=== PATIENT | female | born 1985 | race Caucasian/White ===

== ENCOUNTER 2017-07-07 11:07 | Emergency (ER) | payer MEDICAID ==
[2017-07-07] MEDS: ONDANSETRON (ODT) 4 MG TAB ODT (11:41)
[2017-07-07 11:50] LABS: ADD MAN DIFF? NO
[2017-07-07 11:58] LABS: BASOPHILS % 0.5 % (0.0-2.0); EOSINOPHILS # 0.1 10^3/ul (0.0-0.5); EOSINOPHILS % 1.5 % (0.0-7.0); HEMATOCRIT 41.5 % (37.0-47.0); HEMOGLOBIN 13.8 g/dl (12.0-16.0); LYMPHOCYTES # 1.6 10^3/ul (0.8-2.9); LYMPHOCYTES % 23.9 % (15.0-51.0); MEAN CORPUSCULAR HEMOGLOBIN 28.8 pg (29.0-33.0); MEAN CORPUSCULAR HGB CONC 33.3 g/dl (32.0-37.0); MEAN CORPUSCULAR VOLUME 86.5 fl (82.0-101.0); MEAN PLATELET VOLUME 9.3 fl (7.4-10.4); MONOCYTE # 0.4 10^3/ul (0.3-0.9); MONOCYTES % 5.6 % (0.0-11.0); NEUTROPHIL # 4.5 10^3/ul (1.6-7.5); NEUTROPHILS % 68.2 % (39.0-77.0); PLATELET COUNT 310 10^3/UL (140-415); RED CELL DISTRIBUTION WIDTH 12.1 % (11.5-14.5)
[2017-07-07 11:58] LABS: WHITE BLOOD COUNT 6.6 10^3/ul (4.8-10.8)
[2017-07-07 12:13] LABS: UR BACTERIA FEW /HPF (NONE SEEN); UR RBC > 182 /HPF (0-5); UR WBC 34 /HPF (0-5)
[2017-07-07 12:14] LABS: ALANINE AMINOTRANSFERASE 32 IU/L (13-69); ALBUMIN 4.2 g/dl (3.3-4.9); ALBUMIN/GLOBULIN RATIO 1.23; ALKALINE PHOSPHATASE 80 IU/L (42-121); ANION GAP 15 (8-16); ASPARTATE AMINO TRANSFERASE 22 IU/L (15-46); BILIRUBIN,INDIRECT 0.3 mg/dl (0-1.1); BILIRUBIN,TOTAL 0.3 mg/dl (0.2-1.3); BLOOD UREA NITROGEN 11 mg/dl (7-20); CALCIUM 9.8 mg/dl (8.4-10.2); CARBON DIOXIDE 30 mmol/L (21-31); CHLORIDE 103 mmol/L (97-110); CREATININE 0.56 mg/dl (0.44-1.00); GLUCOSE 98 mg/dl (70-220); LIPASE 79 U/L (23-300); POTASSIUM 4.3 mmol/L (3.5-5.1); SODIUM 144 mmol/L (135-144); TOTAL PROTEIN 7.6 g/dl (6.1-8.1)
[2017-07-07 12:28] LABS: ADD UMIC YES; UR ASCORBIC ACID NEGATIVE (NEGATIVE); UR BILIRUBIN (Dip) NEGATIVE (NEGATIVE); UR BLOOD (Dip) 3+ mg/dL (NEGATIVE); UR CLARITY SLIGHTLY CLOUDY (CLEAR); UR COLOR YELLOW (YELLOW); UR GLUCOSE (Dip) NEGATIVE (NEGATIVE); UR KETONES (Dip) NEGATIVE (NEGATIVE); UR LEUKOCYTE ESTERASE (Dip) NEGATIVE Leu/ul (NEGATIVE); UR NITRITE (Dip) NEGATIVE (NEGATIVE); UR SPECIFIC GRAVITY (Dip) 1.015 (1.003-1.030); UR SQUAMOUS EPITHELIAL CELL FEW /HPF (FEW); UR TOTAL PROTEIN (Dip) NEGATIVE (NEGATIVE); UR UROBILINOGEN (Dip) NEGATIVE (NEGATIVE)
== END 2017-07-07 12:47 | disposition home or self-care (01) ==
LOC: FTE 11:07
DX: R42 Dizziness and giddiness (principal)
CPT/HCPCS: 80053; 81001; 81025; 83690; 85025; 99283

== ENCOUNTER 2017-11-02 06:50 | Emergency (ER) | payer SELFPAY, MEDICAID ==
[2017-11-02] MEDS: SILVER SULFADIAZINE 1% 25 GM CR TOP (07:23)
== END 2017-11-02 07:32 | disposition home or self-care (01) ==
LOC: FTE 06:50
DX: T22.211A Burn of second degree of right forearm, initial encounter (principal); X10.1XXA Contact with hot food, initial encounter; Y92.89 Other specified places as the place of occurrence of the external cause
CPT/HCPCS: 16020; 99283-25

== ENCOUNTER 2018-03-06 02:35 | Emergency (ER) | payer MEDICAID, OTHER ==
[2018-03-06 04:04] LABS: ADD MAN DIFF? NO
[2018-03-06 04:06] LABS: WHITE BLOOD COUNT 9.4 10^3/ul (4.8-10.8)
[2018-03-06 04:06] LABS: BASOPHILS % 0.4 % (0.0-2.0); EOSINOPHILS # 0.1 10^3/ul (0.0-0.5); EOSINOPHILS % 0.6 % (0.0-7.0); HEMATOCRIT 36.3 % (37.0-47.0); HEMOGLOBIN 12.3 g/dl (12.0-16.0); LYMPHOCYTES # 1.8 10^3/ul (0.8-2.9); LYMPHOCYTES % 18.8 % (15.0-51.0); MEAN CORPUSCULAR HEMOGLOBIN 29.4 pg (29.0-33.0); MEAN CORPUSCULAR HGB CONC 33.9 g/dl (32.0-37.0); MEAN CORPUSCULAR VOLUME 86.6 fl (82.0-101.0); MEAN PLATELET VOLUME 9.8 fl (7.4-10.4); MONOCYTE # 0.5 10^3/ul (0.3-0.9); MONOCYTES % 4.9 % (0.0-11.0); NEUTROPHILS % 75.1 % (39.0-77.0); PLATELET COUNT 271 10^3/UL (140-415); RED BLOOD COUNT 4.19 10^6/ul (4.20-5.40); RED CELL DISTRIBUTION WIDTH 12.3 % (11.5-14.5)
[2018-03-06 04:15] LABS: ADD UMIC YES; UR ASCORBIC ACID NEGATIVE (NEGATIVE); UR BILIRUBIN (Dip) NEGATIVE (NEGATIVE); UR BLOOD (Dip) 3+ mg/dL (NEGATIVE); UR CLARITY SLIGHTLY CLOUDY (CLEAR); UR COLOR YELLOW (YELLOW); UR GLUCOSE (Dip) NEGATIVE (NEGATIVE); UR KETONES (Dip) NEGATIVE (NEGATIVE); UR LEUKOCYTE ESTERASE (Dip) NEGATIVE Leu/ul (NEGATIVE); UR MUCUS FEW /HPF (NONE SEEN); UR NITRITE (Dip) NEGATIVE (NEGATIVE); UR RBC > 182 /HPF (0-5); UR SPECIFIC GRAVITY (Dip) 1.018 (1.003-1.030); UR SQUAMOUS EPITHELIAL CELL FEW /HPF (FEW); UR TOTAL PROTEIN (Dip) NEGATIVE (NEGATIVE); UR UROBILINOGEN (Dip) NEGATIVE (NEGATIVE); UR WBC 4 /HPF (0-5)
== END 2018-03-06 05:50 | disposition home or self-care (01) ==
LOC: FTE 02:35
DX: O20.9 Hemorrhage in early pregnancy, unspecified (principal); Z3A.08 8 weeks gestation of pregnancy
CPT/HCPCS: 36415; 76801; 81001; 84702; 85025; 86900; 86901; 99284-25

== ENCOUNTER 2018-04-21 17:31 | Emergency (ER) | payer MEDICAID ==
[2018-04-21 19:42] LABS: ADD MAN DIFF? NO
[2018-04-21 19:52] LABS: WHITE BLOOD COUNT 6.6 10^3/ul (4.8-10.8)
[2018-04-21 19:52] LABS: BASOPHILS % 0.2 % (0.0-2.0); EOSINOPHILS # 0.1 10^3/ul (0.0-0.5); EOSINOPHILS % 1.4 % (0.0-7.0); HEMATOCRIT 36.6 % (37.0-47.0); LYMPHOCYTES # 1.6 10^3/ul (0.8-2.9); LYMPHOCYTES % 23.9 % (15.0-51.0); MEAN CORPUSCULAR HEMOGLOBIN 28.9 pg (29.0-33.0); MEAN CORPUSCULAR HGB CONC 32.8 g/dl (32.0-37.0); MEAN CORPUSCULAR VOLUME 88.2 fl (82.0-101.0); MEAN PLATELET VOLUME 9.7 fl (7.4-10.4); MONOCYTE # 0.5 10^3/ul (0.3-0.9); MONOCYTES % 6.8 % (0.0-11.0); NEUTROPHIL # 4.4 10^3/ul (1.6-7.5); NEUTROPHILS % 67.2 % (39.0-77.0); PLATELET COUNT 268 10^3/UL (140-415); RED BLOOD COUNT 4.15 10^6/ul (4.20-5.40); RED CELL DISTRIBUTION WIDTH 12.5 % (11.5-14.5)
[2018-04-21 20:02] LABS: ADD UMIC YES; UR ASCORBIC ACID NEGATIVE (NEGATIVE); UR BACTERIA FEW /HPF (NONE SEEN); UR BILIRUBIN (Dip) NEGATIVE (NEGATIVE); UR BLOOD (Dip) NEGATIVE (NEGATIVE); UR CLARITY SLIGHTLY CLOUDY (CLEAR); UR COLOR YELLOW (YELLOW); UR GLUCOSE (Dip) NEGATIVE (NEGATIVE); UR KETONES (Dip) NEGATIVE (NEGATIVE); UR LEUKOCYTE ESTERASE (Dip) 2+ Leu/ul (NEGATIVE); UR NITRITE (Dip) NEGATIVE (NEGATIVE); UR RBC 4 /HPF (0-5); UR SPECIFIC GRAVITY (Dip) 1.012 (1.003-1.030); UR SQUAMOUS EPITHELIAL CELL FEW /HPF (FEW); UR TOTAL PROTEIN (Dip) NEGATIVE (NEGATIVE); UR UROBILINOGEN (Dip) NEGATIVE (NEGATIVE); UR WBC 6 /HPF (0-5)
[2018-04-21 20:09] LABS: ALANINE AMINOTRANSFERASE 14 IU/L (13-69); ALBUMIN/GLOBULIN RATIO 1.17; ALKALINE PHOSPHATASE 73 IU/L (42-121); ANION GAP 9 (5-13); ASPARTATE AMINO TRANSFERASE 18 IU/L (15-46); BLOOD UREA NITROGEN 8 mg/dl (7-20); CALCIUM 9.5 mg/dl (8.4-10.2); CARBON DIOXIDE 26 mmol/L (21-31); CHLORIDE 103 mmol/L (97-110); CREATININE 0.46 mg/dl (0.44-1.00); Estimated GFR > 60 mL/min (>60); GLUCOSE 97 mg/dl (70-220); LIPASE 81 U/L (23-300); SODIUM 138 mmol/L (135-144); TOTAL PROTEIN 7.4 g/dl (6.1-8.1)
== END 2018-04-21 21:24 | disposition home or self-care (01) ==
LOC: FTE 17:31
DX: O26.892 Other specified pregnancy related conditions, second trimester (principal); R10.13 Epigastric pain; O23.42 Unspecified infection of urinary tract in pregnancy, second trimester; Z3A.16 16 weeks gestation of pregnancy
CPT/HCPCS: 36415; 76705; 80053; 81001; 83690; 85025; 99284-25

== ENCOUNTER 2018-05-10 19:48 | Emergency (ER) | payer MEDICAID ==
[2018-05-10 22:31] LABS: ADD UMIC YES; UR ASCORBIC ACID NEGATIVE (NEGATIVE); UR BILIRUBIN (Dip) NEGATIVE (NEGATIVE); UR BLOOD (Dip) NEGATIVE (NEGATIVE); UR CLARITY CLOUDY (CLEAR); UR COLOR YELLOW (YELLOW); UR GLUCOSE (Dip) 2+ mg/dL (NEGATIVE); UR KETONES (Dip) TRACE mg/dL (NEGATIVE); UR LEUKOCYTE ESTERASE (Dip) 2+ Leu/ul (NEGATIVE); UR MUCUS FEW /HPF (NONE SEEN); UR NITRITE (Dip) NEGATIVE (NEGATIVE); UR RBC 1 /HPF (0-5); UR SQUAMOUS EPITHELIAL CELL MANY /HPF (FEW); UR TOTAL PROTEIN (Dip) NEGATIVE (NEGATIVE); UR UROBILINOGEN (Dip) 1+ mg/dL (NEGATIVE); UR WBC 4 /HPF (0-5)
[2018-05-10] MEDS: ACETAMINOPHEN 500 MG TAB PO (23:30)
== END 2018-05-10 23:38 | disposition home or self-care (01) ==
LOC: FTE 23:38
DX: O26.892 Other specified pregnancy related conditions, second trimester (principal); O23.42 Unspecified infection of urinary tract in pregnancy, second trimester; Z3A.19 19 weeks gestation of pregnancy
CPT/HCPCS: 76805; 76817; 81001; 82962; 87086; 99284-25

== ENCOUNTER 2018-05-24 09:40 | Outpatient (CLI) | payer MEDICAID ==
[2018-05-24 11:05] LABS: RUPTURE FETAL MEMBRANES NEGATIVE (NEGATIVE)
[2018-05-24 11:25] LABS: ADD UMIC YES; UR ASCORBIC ACID NEGATIVE (NEGATIVE); UR BILIRUBIN (Dip) NEGATIVE (NEGATIVE); UR BLOOD (Dip) 1+ mg/dL (NEGATIVE); UR CLARITY CLEAR (CLEAR); UR COLOR STRAW (YELLOW); UR GLUCOSE (Dip) NEGATIVE (NEGATIVE); UR KETONES (Dip) NEGATIVE (NEGATIVE); UR LEUKOCYTE ESTERASE (Dip) NEGATIVE Leu/ul (NEGATIVE); UR NITRITE (Dip) NEGATIVE (NEGATIVE); UR RBC 0 /HPF (0-5); UR SQUAMOUS EPITHELIAL CELL FEW /HPF (FEW); UR TOTAL PROTEIN (Dip) NEGATIVE (NEGATIVE); UR UROBILINOGEN (Dip) NEGATIVE (NEGATIVE); UR WBC 0 /HPF (0-5)
== END 2018-05-24 12:30 | disposition home or self-care (01) ==
LOC: OBT 09:40 → L-D 09:41 → OBT 12:30
DX: O46.8X2 Other antepartum hemorrhage, second trimester (principal); Z3A.21 21 weeks gestation of pregnancy
CPT/HCPCS: 76815; 76817; 81001; 84112; 87086

== ENCOUNTER 2018-07-02 10:34 | Outpatient (CLI) | payer MEDICAID ==
[2018-07-02 11:19] LABS: ADD MAN DIFF? NO
[2018-07-02 11:20] LABS: WHITE BLOOD COUNT 7.9 10^3/ul (4.8-10.8)
[2018-07-02 11:20] LABS: BASOPHILS % 0.3 % (0.0-2.0); EOSINOPHILS # 0.1 10^3/ul (0.0-0.5); EOSINOPHILS % 1.1 % (0.0-7.0); HEMATOCRIT 33.1 % (37.0-47.0); HEMOGLOBIN 10.9 g/dl (12.0-16.0); LYMPHOCYTES # 1.5 10^3/ul (0.8-2.9); LYMPHOCYTES % 18.7 % (15.0-51.0); MEAN CORPUSCULAR HGB CONC 32.9 g/dl (32.0-37.0); MEAN PLATELET VOLUME 9.5 fl (7.4-10.4); MONOCYTE # 0.5 10^3/ul (0.3-0.9); NEUTROPHIL # 5.8 10^3/ul (1.6-7.5); NEUTROPHILS % 73.1 % (39.0-77.0); PLATELET COUNT 252 10^3/UL (140-415); RED BLOOD COUNT 3.76 10^6/ul (4.20-5.40); RED CELL DISTRIBUTION WIDTH 12.1 % (11.5-14.5)
[2018-07-02 11:52] LABS: ADD UMIC YES; UR ASCORBIC ACID NEGATIVE (NEGATIVE); UR BILIRUBIN (Dip) NEGATIVE (NEGATIVE); UR BLOOD (Dip) NEGATIVE (NEGATIVE); UR CLARITY CLEAR (CLEAR); UR COLOR YELLOW (YELLOW); UR GLUCOSE (Dip) 2+ mg/dL (NEGATIVE); UR KETONES (Dip) NEGATIVE (NEGATIVE); UR LEUKOCYTE ESTERASE (Dip) 2+ Leu/ul (NEGATIVE); UR NITRITE (Dip) NEGATIVE (NEGATIVE); UR RBC 1 /HPF (0-5); UR SPECIFIC GRAVITY (Dip) 1.014 (1.003-1.030); UR SQUAMOUS EPITHELIAL CELL FEW /HPF (FEW); UR TOTAL PROTEIN (Dip) NEGATIVE (NEGATIVE); UR UROBILINOGEN (Dip) NEGATIVE (NEGATIVE); UR WBC 2 /HPF (0-5)
== END 2018-07-02 12:57 | disposition home or self-care (01) ==
LOC: OBT 10:34 → L-D 10:34 → OBT 12:57
DX: O26.892 Other specified pregnancy related conditions, second trimester (principal); Z3A.25 25 weeks gestation of pregnancy; R10.2 Pelvic and perineal pain
CPT/HCPCS: 76817; 81001; 85025; 87086

== ENCOUNTER 2018-07-09 21:27 | Outpatient (CLI) | payer MEDICAID | END 2018-07-10 00:08 | disposition home or self-care (01) | LOC: OBT 21:27 → L-D 21:29 | DX: O9A.212 Injury, poisoning and certain other consequences of external causes complicating pregnancy, second trimester (principal); O26.892 Other specified pregnancy related conditions, second trimester; R51 Headache; Z3A.26 26 weeks gestation of pregnancy | CPT/HCPCS: 76815; 76817; 76818; 82962 ==

== ENCOUNTER 2018-07-10 00:19 | Emergency (ER) | payer SELFPAY, MEDICAID | END 2018-07-10 01:45 | disposition left against medical advice (07) | LOC: FTE 00:19 | DX: Z53.21 Procedure and treatment not carried out due to patient leaving prior to being seen by health care provider (principal) ==

== ENCOUNTER 2018-07-30 13:11 | Outpatient (CLI) | payer MEDICAID ==
[2018-07-30 15:22] LABS: ADD UMIC YES; UR ASCORBIC ACID NEGATIVE (NEGATIVE); UR BILIRUBIN (Dip) NEGATIVE (NEGATIVE); UR BLOOD (Dip) 1+ mg/dL (NEGATIVE); UR CLARITY SLIGHTLY CLOUDY (CLEAR); UR COLOR YELLOW (YELLOW); UR GLUCOSE (Dip) 1+ mg/dL (NEGATIVE); UR KETONES (Dip) NEGATIVE (NEGATIVE); UR LEUKOCYTE ESTERASE (Dip) TRACE Leu/ul (NEGATIVE); UR NITRITE (Dip) NEGATIVE (NEGATIVE); UR RBC 0 /HPF (0-5); UR SQUAMOUS EPITHELIAL CELL FEW /HPF (FEW); UR TOTAL PROTEIN (Dip) NEGATIVE (NEGATIVE); UR UROBILINOGEN (Dip) NEGATIVE (NEGATIVE); UR WBC 2 /HPF (0-5)
== END 2018-07-30 16:16 | disposition home or self-care (01) ==
LOC: OBT 13:11 → L-D 13:12 → OBT 16:16
DX: O26.853 Spotting complicating pregnancy, third trimester (principal); O24.419 Gestational diabetes mellitus in pregnancy, unspecified control; Z3A.29 29 weeks gestation of pregnancy
CPT/HCPCS: 76817; 76818; 81001

== ENCOUNTER 2018-08-17 13:49 | Outpatient (CLI) | payer MEDICAID ==
[2018-08-17 14:40] LABS: ADD MAN DIFF? NO
[2018-08-17 14:43] LABS: BASOPHILS % 0.3 % (0.0-2.0); EOSINOPHILS # 0.1 10^3/ul (0.0-0.5); EOSINOPHILS % 1.2 % (0.0-7.0); HEMATOCRIT 34.9 % (37.0-47.0); HEMOGLOBIN 11.3 g/dl (12.0-16.0); LYMPHOCYTES # 1.5 10^3/ul (0.8-2.9); LYMPHOCYTES % 24.8 % (15.0-51.0); MEAN CORPUSCULAR HEMOGLOBIN 27.5 pg (29.0-33.0); MEAN CORPUSCULAR HGB CONC 32.4 g/dl (32.0-37.0); MEAN CORPUSCULAR VOLUME 84.9 fl (82.0-101.0); MEAN PLATELET VOLUME 10.3 fl (7.4-10.4); MONOCYTE # 0.4 10^3/ul (0.3-0.9); MONOCYTES % 7.5 % (0.0-11.0); NEUTROPHIL # 3.8 10^3/ul (1.6-7.5); NEUTROPHILS % 65.7 % (39.0-77.0); PLATELET COUNT 267 10^3/UL (140-415); RED BLOOD COUNT 4.11 10^6/ul (4.20-5.40); RED CELL DISTRIBUTION WIDTH 12.2 % (11.5-14.5)
[2018-08-17 14:43] LABS: WHITE BLOOD COUNT 5.9 10^3/ul (4.8-10.8)
[2018-08-17 15:06] LABS: ALANINE AMINOTRANSFERASE 9 IU/L (13-69); ALBUMIN 3.4 g/dl (3.3-4.9); ALBUMIN/GLOBULIN RATIO 1.03; ALKALINE PHOSPHATASE 106 IU/L (42-121); ANION GAP 10 (5-13); ASPARTATE AMINO TRANSFERASE 18 IU/L (15-46); BILIRUBIN,INDIRECT 0.2 mg/dl (0-1.1); BILIRUBIN,TOTAL 0.2 mg/dl (0.2-1.3); BLOOD UREA NITROGEN 9 mg/dl (7-20); CALCIUM 9.3 mg/dl (8.4-10.2); CARBON DIOXIDE 21 mmol/L (21-31); CHLORIDE 104 mmol/L (97-110); CREATININE 0.44 mg/dl (0.44-1.00); Estimated GFR > 60 mL/min (>60); GLUCOSE 138 mg/dl (70-220); POTASSIUM 3.7 mmol/L (3.5-5.1); SODIUM 135 mmol/L (135-144); TOTAL PROTEIN 6.7 g/dl (6.1-8.1); URIC ACID 5.7 mg/dl (3.1-7.9)
[2018-08-17 15:39] LABS: ADD UMIC YES; UR ASCORBIC ACID NEGATIVE (NEGATIVE); UR BACTERIA FEW /HPF (NONE SEEN); UR BILIRUBIN (Dip) NEGATIVE (NEGATIVE); UR BLOOD (Dip) NEGATIVE (NEGATIVE); UR CLARITY CLEAR (CLEAR); UR COLOR STRAW (YELLOW); UR GLUCOSE (Dip) 1+ mg/dL (NEGATIVE); UR KETONES (Dip) NEGATIVE (NEGATIVE); UR LEUKOCYTE ESTERASE (Dip) 2+ Leu/ul (NEGATIVE); UR NITRITE (Dip) NEGATIVE (NEGATIVE); UR RBC 2 /HPF (0-5); UR SPECIFIC GRAVITY (Dip) 1.004 (1.003-1.030); UR SQUAMOUS EPITHELIAL CELL MODERATE /HPF (FEW); UR TOTAL PROTEIN (Dip) NEGATIVE (NEGATIVE); UR UROBILINOGEN (Dip) NEGATIVE (NEGATIVE); UR WBC 9 /HPF (0-5)
== END 2018-08-17 16:10 | disposition home or self-care (01) ==
LOC: OBT 13:49 → L-D 13:49 → OBT 16:10
DX: O36.8330 Maternal care for abnormalities of the fetal heart rate or rhythm, third trimester, not applicable or unspecified (principal); O24.419 Gestational diabetes mellitus in pregnancy, unspecified control; Z3A.32 32 weeks gestation of pregnancy
CPT/HCPCS: 76815; 76818; 80053; 81001; 84560; 85025

== ENCOUNTER 2018-08-18 21:55 | Inpatient (IN) | payer OTHER, MEDICAID ==
[2018-08-18 23:43] LABS: COLLECTION PERIOD 24 hrs
[2018-08-18] MEDS ORDERED: GLUCAGON 1 MG INJ IM (23:45)
[2018-08-18] MEDS ORDERED: GLUCOSE GEL 15 GRAM TUBE BUCCAL (23:45)
[2018-08-18] MEDS ORDERED: DEXTROSE 50% 50 ML SYRINGE IV ×2 (23:45)
[2018-08-18] MEDS ORDERED: GLUCOSE GEL 15 GRAM TUBE PO ×2 (23:45)
[2018-08-18 23:56] LABS: VOLUME 2300 mls
[2018-08-18 23:57] LABS: COLLECTION PERIOD 24 hrs; SCRET 0.44 mg/dl (0.44-1.00)
[2018-08-18 23:58] LABS: CREATININE CLEARANCE 164.1 mls/min (84.0-162.0); VOLUME 2300 ml/24hrs
[2018-08-19 00:04] LABS: GLUCOSE 119 mg/dl (70-220)
[2018-08-19] MEDS: metFORMIN 500 MG TAB PO ×2 (00:11→21:11)
[2018-08-19] MEDS: PRENATAL VITAMIN PO ×2 (01:21→21:11)
[2018-08-19] MEDS: ACCU-CHEK XX ×4 (08:26→19:54)
[2018-08-19] MEDS ORDERED: PRENATAL VITAMIN PO (09:00)
[2018-08-19] MEDS: ACETAMINOPHEN 325 MG TAB PO (20:09)
[2018-08-20] MEDS: ACCU-CHEK XX ×2 (08:01→10:18)
== END 2018-08-20 15:10 | disposition home or self-care (01) | DRG 832 ==
LOC: OBT 21:55 → L-D 21:56 → PP1 08-19
DX: O13.3 Gestational [pregnancy-induced] hypertension without significant proteinuria, third trimester (principal); O41.03X0 Oligohydramnios, third trimester, not applicable or unspecified; Z3A.32 32 weeks gestation of pregnancy; O24.419 Gestational diabetes mellitus in pregnancy, unspecified control; O36.63X0 Maternal care for excessive fetal growth, third trimester, not applicable or unspecified
CPT/HCPCS: 76815; 76818; 82575; 82947; 82962; 83036; 84156

== ENCOUNTER 2018-08-23 20:52 | Outpatient (CLI) | payer OTHER | END 2018-08-23 23:08 | disposition home or self-care (01) | LOC: OBT 20:52 → L-D 20:54 → OBT 23:08 | DX: O41.03X0 Oligohydramnios, third trimester, not applicable or unspecified (principal); O24.415 Gestational diabetes mellitus in pregnancy, controlled by oral hypoglycemic drugs; Z3A.33 33 weeks gestation of pregnancy | CPT/HCPCS: 76818 ==

== ENCOUNTER 2018-08-30 21:25 | Outpatient (CLI) | payer OTHER | END 2018-08-30 23:18 | disposition home or self-care (01) | LOC: OBT 21:25 → L-D 21:25 → OBT 23:18 | DX: O24.419 Gestational diabetes mellitus in pregnancy, unspecified control (principal); Z3A.34 34 weeks gestation of pregnancy | CPT/HCPCS: 76815; 76818 ==

== ENCOUNTER 2018-09-02 11:24 | Outpatient (CLI) | payer OTHER | END 2018-09-02 13:30 | disposition home or self-care (01) | LOC: OBT 11:24 → L-D 11:26 → OBT 13:30 | DX: O24.419 Gestational diabetes mellitus in pregnancy, unspecified control (principal); Z3A.34 34 weeks gestation of pregnancy | CPT/HCPCS: 76818; 82962 ==

== ENCOUNTER 2018-09-08 12:32 | Inpatient (IN) | payer OTHER ==
[2018-09-08] MEDS ORDERED: LACTATED RINGER'S 1,000 ML IV (12:46)
[2018-09-08] MEDS ORDERED: ACETAMINOPHEN 325 MG TAB PO (13:00)
[2018-09-08] MEDS ORDERED: ONDANSETRON 4 MG INJ IV ×2 (13:00→14:00)
[2018-09-08] MEDS ORDERED: CA GLUCONATE (GM) 10% 10ML INJ IV ×2 (13:00→14:00)
[2018-09-08] MEDS ORDERED: MAGNESIUM SULFATE 4 GM/100 ML 100 ML IV (13:30)
[2018-09-08] MEDS ORDERED: MAGNESIUM SULFATE 20 GM/500 ML 500 ML IV ×2 (13:45→14:00)
[2018-09-08] MEDS ORDERED: BETAMET NA PHOS/AC(6 MG/ML) 2 ML INJ SYG IM ×2 (14:00→15:00)
[2018-09-08] MEDS: MAGNESIUM SULFATE 4 GM/100 ML 100 ML IV (14:00)
[2018-09-08] MEDS: LACTATED RINGER'S 1,000 ML IV ×2 (14:44→21:14)
[2018-09-08 14:46] LABS: ADD MAN DIFF? NO
[2018-09-08 14:48] LABS: BASOPHILS % 0.6 % (0.0-2.0); EOSINOPHILS # 0.1 10^3/ul (0.0-0.5); EOSINOPHILS % 0.9 % (0.0-7.0); HEMATOCRIT 32.7 % (37.0-47.0); HEMOGLOBIN 10.9 g/dl (12.0-16.0); LYMPHOCYTES # 1.5 10^3/ul (0.8-2.9); LYMPHOCYTES % 27.6 % (15.0-51.0); MEAN CORPUSCULAR HEMOGLOBIN 27.7 pg (29.0-33.0); MEAN CORPUSCULAR HGB CONC 33.3 g/dl (32.0-37.0); MEAN PLATELET VOLUME 10.2 fl (7.4-10.4); MONOCYTE # 0.4 10^3/ul (0.3-0.9); MONOCYTES % 6.5 % (0.0-11.0); NEUTROPHIL # 3.5 10^3/ul (1.6-7.5); NEUTROPHILS % 63.8 % (39.0-77.0); PLATELET COUNT 237 10^3/UL (140-415); RED BLOOD COUNT 3.94 10^6/ul (4.20-5.40); RED CELL DISTRIBUTION WIDTH 12.6 % (11.5-14.5)
[2018-09-08 14:48] LABS: WHITE BLOOD COUNT 5.4 10^3/ul (4.8-10.8)
[2018-09-08 15:08] LABS: ALANINE AMINOTRANSFERASE 18 IU/L (13-69); ALBUMIN 3.3 g/dl (3.3-4.9); ALBUMIN/GLOBULIN RATIO 1.06; ALKALINE PHOSPHATASE 123 IU/L (42-121); ANION GAP 7 (5-13); ASPARTATE AMINO TRANSFERASE 20 IU/L (15-46); BILIRUBIN,INDIRECT 0.2 mg/dl (0-1.1); BILIRUBIN,TOTAL 0.2 mg/dl (0.2-1.3); BLOOD UREA NITROGEN 10 mg/dl (7-20); CALCIUM 9.4 mg/dl (8.4-10.2); CARBON DIOXIDE 21 mmol/L (21-31); CHLORIDE 110 mmol/L (97-110); CREATININE 0.47 mg/dl (0.44-1.00); Estimated GFR > 60 mL/min (>60); GLUCOSE 120 mg/dl (70-220); POTASSIUM 3.8 mmol/L (3.5-5.1); SODIUM 138 mmol/L (135-144); TOTAL PROTEIN 6.4 g/dl (6.1-8.1); URIC ACID 6.5 mg/dl (3.1-7.9)
[2018-09-08 15:09] LABS: PARTIAL THROMBOPLASTIN TIME 25.8 Sec (23.0-35.0); PROTIME 12.3 Sec (11.9-14.9)
[2018-09-08 15:44] LABS: ADD UMIC YES; UR AMORPHOUS CRYSTAL FEW /HPF (NONE SEEN); UR ASCORBIC ACID NEGATIVE (NEGATIVE); UR BACTERIA FEW /HPF (NONE SEEN); UR BILIRUBIN (Dip) NEGATIVE (NEGATIVE); UR BLOOD (Dip) NEGATIVE (NEGATIVE); UR CLARITY SLIGHTLY CLOUDY (CLEAR); UR COLOR YELLOW (YELLOW); UR GLUCOSE (Dip) NEGATIVE (NEGATIVE); UR KETONES (Dip) NEGATIVE (NEGATIVE); UR LEUKOCYTE ESTERASE (Dip) 1+ Leu/ul (NEGATIVE); UR NITRITE (Dip) NEGATIVE (NEGATIVE); UR RBC 1 /HPF (0-5); UR SPECIFIC GRAVITY (Dip) 1.011 (1.003-1.030); UR SQUAMOUS EPITHELIAL CELL FEW /HPF (FEW); UR TOTAL PROTEIN (Dip) NEGATIVE (NEGATIVE); UR UROBILINOGEN (Dip) NEGATIVE (NEGATIVE); UR WBC 3 /HPF (0-5)
[2018-09-08] MEDS ORDERED: metFORMIN 500 MG TAB PO (17:35)
[2018-09-08] MEDS: ACETAMINOPHEN 325 MG TAB PO (17:37)
[2018-09-08] MEDS ORDERED: GLUCOSE GEL 15 GRAM TUBE PO ×2 (18:30)
[2018-09-08] MEDS ORDERED: GLUCAGON 1 MG INJ IM (18:30)
[2018-09-08] MEDS ORDERED: GLUCOSE GEL 15 GRAM TUBE BUCCAL (18:30)
[2018-09-08] MEDS ORDERED: DEXTROSE 50% 50 ML SYRINGE IV ×2 (18:30)
[2018-09-08 18:40] LABS: HEMOGLOBIN A1C 5.6 % (0-5.9)
[2018-09-08] MEDS: ACCU-CHEK XX (19:57)
[2018-09-08] MEDS: metFORMIN 500 MG TAB PO (21:15)
[2018-09-08] MEDS: PRENATAL VITAMIN PO (21:15)
[2018-09-08] MEDS: FERROUS SULFATE (EC) 325 MG TAB PO (21:16)
[2018-09-09] MEDS: LACTATED RINGER'S 1,000 ML IV ×3 (05:32→15:08)
[2018-09-09] MEDS ORDERED: DOCUSATE SODIUM 100 MG CAP PO (09:00)
[2018-09-09] MEDS ORDERED: FERROUS SULFATE (EC) 325 MG TAB PO (09:00)
[2018-09-09] MEDS ORDERED: PRENATAL VITAMIN PO ×2 (09:00)
[2018-09-09] MEDS: PRENATAL VITAMIN PO (09:19)
[2018-09-09] MEDS: FERROUS SULFATE (EC) 325 MG TAB PO (09:19)
[2018-09-09] MEDS: DOCUSATE SODIUM 100 MG CAP PO (09:19)
[2018-09-09] MEDS ORDERED: AMPICILLIN 2 GM/NS (PMX) 0 ML (11:18)
[2018-09-09] MEDS: ACETAMINOPHEN 325 MG TAB PO (11:23)
[2018-09-09 14:39] LABS: COLLECTION PERIOD 24 hrs
[2018-09-09] MEDS: DIPHTH/TET/ACEL PERTUSS (ADULT) 0.5 ML VIAL IM* (15:14)
[2018-09-09 15:41] LABS: COLLECTION PERIOD 24 hrs; SCRET 0.47 mg/dl (0.44-1.00); VOLUME 4400 ml/24hrs
[2018-09-09 15:42] LABS: CREATININE CLEARANCE 185.7 mls/min (84.0-162.0); CREATININE,URINE RANDOM 28.56 mg/dl (20-320); VOLUME 4400 mls
[2018-09-09 22:27] LABS: RAPID PLASMA REAGIN NONREACTIVE (NR)
== END 2018-09-09 20:27 | disposition home or self-care (01) | DRG 832 ==
LOC: L-D 12:32
DX: O14.00 Mild to moderate pre-eclampsia, unspecified trimester (principal); O24.313 Unspecified pre-existing diabetes mellitus in pregnancy, third trimester; O13.3 Gestational [pregnancy-induced] hypertension without significant proteinuria, third trimester; Z3A.35 35 weeks gestation of pregnancy; O32.1XX0 Maternal care for breech presentation, not applicable or unspecified; O36.63X0 Maternal care for excessive fetal growth, third trimester, not applicable or unspecified; E11.9 Type 2 diabetes mellitus without complications
CPT/HCPCS: 76815; 76818; 80053; 81001; 82575; 82962; 83036; 84156; 84560; 85025; 85384; 85610; 85730; 86592; 86850; 86900; 86901; 87081; 90715

== ENCOUNTER 2018-09-13 14:30 | Outpatient (CLI) | payer OTHER ==
[2018-09-13 15:05] LABS: ADD MAN DIFF? NO
[2018-09-13 15:07] LABS: WHITE BLOOD COUNT 5.3 10^3/ul (4.8-10.8)
[2018-09-13 15:07] LABS: BASOPHILS % 0.4 % (0.0-2.0); EOSINOPHILS # 0.1 10^3/ul (0.0-0.5); EOSINOPHILS % 1.3 % (0.0-7.0); HEMATOCRIT 35.1 % (37.0-47.0); HEMOGLOBIN 11.1 g/dl (12.0-16.0); LYMPHOCYTES # 1.4 10^3/ul (0.8-2.9); LYMPHOCYTES % 26.2 % (15.0-51.0); MEAN CORPUSCULAR HEMOGLOBIN 27.1 pg (29.0-33.0); MEAN CORPUSCULAR HGB CONC 31.6 g/dl (32.0-37.0); MEAN CORPUSCULAR VOLUME 85.6 fl (82.0-101.0); MONOCYTE # 0.4 10^3/ul (0.3-0.9); MONOCYTES % 6.8 % (0.0-11.0); NEUTROPHIL # 3.4 10^3/ul (1.6-7.5); NEUTROPHILS % 64.9 % (39.0-77.0); PLATELET COUNT 238 10^3/UL (140-415)
[2018-09-13 15:20] LABS: ADD UMIC YES; UR ASCORBIC ACID 20 mg/dL (NEGATIVE); UR BACTERIA FEW /HPF (NONE SEEN); UR BILIRUBIN (Dip) NEGATIVE (NEGATIVE); UR BLOOD (Dip) NEGATIVE (NEGATIVE); UR CALCIUM OXALATE CRYSTAL MANY /HPF (NONE SEEN); UR CLARITY CLOUDY (CLEAR); UR COLOR YELLOW (YELLOW); UR GLUCOSE (Dip) 2+ mg/dL (NEGATIVE); UR KETONES (Dip) NEGATIVE (NEGATIVE); UR LEUKOCYTE ESTERASE (Dip) 2+ Leu/ul (NEGATIVE); UR NITRITE (Dip) NEGATIVE (NEGATIVE); UR RBC 35 /HPF (0-5); UR SPECIFIC GRAVITY (Dip) 1.025 (1.003-1.030); UR SQUAMOUS EPITHELIAL CELL MANY /HPF (FEW); UR TOTAL PROTEIN (Dip) NEGATIVE (NEGATIVE); UR UROBILINOGEN (Dip) NEGATIVE (NEGATIVE); UR WBC 13 /HPF (0-5)
[2018-09-13 15:23] LABS: ALANINE AMINOTRANSFERASE 14 IU/L (13-69); ALBUMIN 3.5 g/dl (3.3-4.9); ALBUMIN/GLOBULIN RATIO 1.06; ALKALINE PHOSPHATASE 127 IU/L (42-121); ANION GAP 10 (5-13); ASPARTATE AMINO TRANSFERASE 22 IU/L (15-46); BILIRUBIN,INDIRECT 0.3 mg/dl (0-1.1); BILIRUBIN,TOTAL 0.3 mg/dl (0.2-1.3); BLOOD UREA NITROGEN 11 mg/dl (7-20); CALCIUM 9.3 mg/dl (8.4-10.2); CARBON DIOXIDE 21 mmol/L (21-31); CHLORIDE 109 mmol/L (97-110); Estimated GFR > 60 mL/min (>60); GLUCOSE 146 mg/dl (70-220); SODIUM 140 mmol/L (135-144); TOTAL PROTEIN 6.8 g/dl (6.1-8.1); URIC ACID 6.4 mg/dl (3.1-7.9)
[2018-09-13 15:30] LABS: INR 0.88; PT RATIO 0.9
[2018-09-13 17:08] LABS: CREATININE,URINE RANDOM 142.81 mg/dl (20-320)
[2018-09-13 17:11] LABS: PROTEIN URINE < 5.0 mg/dl (0.0-11.9); PROTEIN/CREAT RATIO 0.03 RATIO
== END 2018-09-13 19:00 | disposition home or self-care (01) ==
LOC: OBT 14:30 → L-D 14:31 → OBT 19:00
DX: O24.419 Gestational diabetes mellitus in pregnancy, unspecified control (principal); O36.8330 Maternal care for abnormalities of the fetal heart rate or rhythm, third trimester, not applicable or unspecified; Z3A.36 36 weeks gestation of pregnancy
CPT/HCPCS: 76818; 80053; 81001; 81003; 82570; 84560; 85025; 85610; 85730

== ENCOUNTER 2018-09-16 19:33 | Outpatient (CLI) | payer OTHER | END 2018-09-17 00:05 | disposition home or self-care (01) | LOC: OBT 19:33 → L-D 19:33 | DX: O24.419 Gestational diabetes mellitus in pregnancy, unspecified control (principal); O13.3 Gestational [pregnancy-induced] hypertension without significant proteinuria, third trimester; Z3A.36 36 weeks gestation of pregnancy | CPT/HCPCS: Z7500 ==

== ENCOUNTER 2018-09-18 05:25 | Inpatient (IN) | payer OTHER ==
[2018-09-18] MEDS ORDERED: LACTATED RINGER'S 1,000 ML IV (05:56)
[2018-09-18] MEDS ORDERED: OXYTOCIN 30 UNITS/LR 500 ML IV (06:00)
[2018-09-18] MEDS ORDERED: LIDOCAINE 1% (MPF) 30 ML INJ INJ (06:00)
[2018-09-18] MEDS ORDERED: BUTORPHANOL 2 MG INJ IV ×2 (06:00)
[2018-09-18] MEDS ORDERED: METHYLERGONOVINE 0.2 MG INJ IM (06:00)
[2018-09-18] MEDS ORDERED: MISOPROSTOL 200 MCG TAB PR (06:00)
[2018-09-18] MEDS ORDERED: IBUPROFEN 600 MG TAB PO (06:00)
[2018-09-18] MEDS ORDERED: CARBOPROST 250 MCG INJ IM (06:00)
[2018-09-18] MEDS: LACTATED RINGER'S 1,000 ML IV ×4 (06:39→23:09)
[2018-09-18 06:57] LABS: ADD MAN DIFF? NO
[2018-09-18 07:05] LABS: BASOPHILS % 0.4 % (0.0-2.0); EOSINOPHILS # 0.1 10^3/ul (0.0-0.5); EOSINOPHILS % 1.6 % (0.0-7.0); HEMATOCRIT 32.5 % (37.0-47.0); HEMOGLOBIN 10.3 g/dl (12.0-16.0); LYMPHOCYTES # 1.3 10^3/ul (0.8-2.9); LYMPHOCYTES % 26.2 % (15.0-51.0); MEAN CORPUSCULAR HEMOGLOBIN 27.1 pg (29.0-33.0); MEAN CORPUSCULAR HGB CONC 31.7 g/dl (32.0-37.0); MEAN CORPUSCULAR VOLUME 85.5 fl (82.0-101.0); MEAN PLATELET VOLUME 10.6 fl (7.4-10.4); MONOCYTE # 0.4 10^3/ul (0.3-0.9); MONOCYTES % 8.1 % (0.0-11.0); NEUTROPHIL # 3.2 10^3/ul (1.6-7.5); NEUTROPHILS % 63.1 % (39.0-77.0); PLATELET COUNT 223 10^3/UL (140-415); RED CELL DISTRIBUTION WIDTH 13.4 % (11.5-14.5)
[2018-09-18 07:05] LABS: WHITE BLOOD COUNT 5.1 10^3/ul (4.8-10.8)
[2018-09-18 07:19] LABS: INR 0.89; PROTIME 12.1 Sec (11.9-14.9); PT RATIO 0.9
[2018-09-18 07:20] LABS: PARTIAL THROMBOPLASTIN TIME 23.5 Sec (23.0-35.0)
[2018-09-18 07:24] LABS: ALANINE AMINOTRANSFERASE 16 IU/L (13-69); ALBUMIN 3.1 g/dl (3.3-4.9); ALBUMIN/GLOBULIN RATIO 0.96; ALKALINE PHOSPHATASE 127 IU/L (42-121); ANION GAP 10 (5-13); ASPARTATE AMINO TRANSFERASE 25 IU/L (15-46); BILIRUBIN,INDIRECT 0.2 mg/dl (0-1.1); BILIRUBIN,TOTAL 0.2 mg/dl (0.2-1.3); BLOOD UREA NITROGEN 10 mg/dl (7-20); CALCIUM 9.4 mg/dl (8.4-10.2); CARBON DIOXIDE 20 mmol/L (21-31); CHLORIDE 107 mmol/L (97-110); CREATININE 0.61 mg/dl (0.44-1.00); Estimated GFR > 60 mL/min (>60); GLUCOSE 159 mg/dl (70-220); POTASSIUM 3.6 mmol/L (3.5-5.1); SODIUM 137 mmol/L (135-144); TOTAL PROTEIN 6.3 g/dl (6.1-8.1); URIC ACID 7.2 mg/dl (3.1-7.9)
[2018-09-18] MEDS: MISOPROSTOL 50 MCG CAPSULE PO ×4 (09:46→22:06)
[2018-09-18 13:52] LABS: RAPID PLASMA REAGIN NONREACTIVE (NR)
[2018-09-18] MEDS: ACETAMINOPHEN 325 MG TAB PO (14:24)
[2018-09-18] MEDS: DEXTROSE 5%-LR 1,000 ML IV (15:29)
[2018-09-19] MEDS: DEXTROSE 5%-LR 1,000 ML IV ×3 (00:34→23:21)
[2018-09-19] MEDS: ACETAMINOPHEN 325 MG TAB PO (00:43)
[2018-09-19] MEDS: MISOPROSTOL 50 MCG CAPSULE PO ×2 (01:00→05:00)
[2018-09-19] MEDS: LACTATED RINGER'S 1,000 ML IV (07:09)
[2018-09-19] MEDS: OXYTOCIN 30 UNITS/LR 500 ML IV (11:42)
[2018-09-20] MEDS: LACTATED RINGER'S 1,000 ML IV ×5 (03:29→23:09)
[2018-09-20] MEDS ORDERED: NALOXONE (0.4 MG/ML) INJ IV (04:30)
[2018-09-20] MEDS: DEXTROSE 5%-LR 1,000 ML IV ×4 (07:09→23:22)
[2018-09-20] MEDS: INSULIN ASPART [NOVOLOG] 3 ML PEN SC ×5 (11:30→21:00)
[2018-09-20] MEDS ORDERED: GLUCOSE GEL 15 GRAM TUBE PO ×2 (12:00)
[2018-09-20] MEDS ORDERED: GLUCAGON 1 MG INJ IM (12:00)
[2018-09-20] MEDS ORDERED: GLUCOSE GEL 15 GRAM TUBE BUCCAL (12:00)
[2018-09-20] MEDS ORDERED: DEXTROSE 50% 50 ML SYRINGE IV ×2 (12:00)
[2018-09-20 12:20] LABS: ADD MAN DIFF? NO
[2018-09-20 12:23] LABS: BASOPHILS % 0.4 % (0.0-2.0); EOSINOPHILS % 0.6 % (0.0-7.0); HEMATOCRIT 33.2 % (37.0-47.0); HEMOGLOBIN 10.6 g/dl (12.0-16.0); LYMPHOCYTES # 1.2 10^3/ul (0.8-2.9); LYMPHOCYTES % 24.1 % (15.0-51.0); MEAN CORPUSCULAR HEMOGLOBIN 27.3 pg (29.0-33.0); MEAN CORPUSCULAR HGB CONC 31.9 g/dl (32.0-37.0); MEAN CORPUSCULAR VOLUME 85.6 fl (82.0-101.0); MEAN PLATELET VOLUME 10.3 fl (7.4-10.4); MONOCYTE # 0.4 10^3/ul (0.3-0.9); MONOCYTES % 8.3 % (0.0-11.0); NEUTROPHIL # 3.3 10^3/ul (1.6-7.5); NEUTROPHILS % 66.4 % (39.0-77.0); PLATELET COUNT 222 10^3/UL (140-415); RED BLOOD COUNT 3.88 10^6/ul (4.20-5.40); RED CELL DISTRIBUTION WIDTH 13.3 % (11.5-14.5)
[2018-09-20 12:23] LABS: WHITE BLOOD COUNT 4.9 10^3/ul (4.8-10.8)
[2018-09-20 12:39] LABS: ALBUMIN/GLOBULIN RATIO 1.18; ANION GAP 8 (5-13); BILIRUBIN,TOTAL 0.5 mg/dl (0.2-1.3); Estimated GFR > 60 mL/min (>60)
[2018-09-20 12:42] LABS: ALANINE AMINOTRANSFERASE 15 IU/L (13-69); ALBUMIN 3.2 g/dl (3.3-4.9); ALKALINE PHOSPHATASE 123 IU/L (42-121); ASPARTATE AMINO TRANSFERASE 26 IU/L (15-46); BILIRUBIN,INDIRECT 0.5 mg/dl (0-1.1); BLOOD UREA NITROGEN 8 mg/dl (7-20); CALCIUM 9.2 mg/dl (8.4-10.2); CARBON DIOXIDE 22 mmol/L (21-31); CHLORIDE 106 mmol/L (97-110); CREATININE 0.57 mg/dl (0.44-1.00); GLUCOSE 79 mg/dl (70-220); LACTATE DEHYDROGENASE 334 IU/L (313-618); SODIUM 136 mmol/L (135-144); TOTAL PROTEIN 5.9 g/dl (6.1-8.1)
[2018-09-20 12:43] LABS: POTASSIUM 4.1 mmol/L (3.5-5.1)
[2018-09-20] MEDS: ROPIVACAINE 0.2% 100ML BAG EPI ×2 (13:09→20:13)
[2018-09-20] MEDS ORDERED: MISOPROSTOL 50 MCG CAPSULE PO (15:00)
[2018-09-20] MEDS: ACETAMINOPHEN 325 MG TAB PO (16:11)
[2018-09-20] MEDS: MAGNESIUM SULFATE 4 GM/100 ML 100 ML IV (16:54)
[2018-09-20] MEDS: MAGNESIUM SULFATE 20 GM/500 ML 500 ML IV (17:28)
[2018-09-20] MEDS: AMPICILLIN 2 GM/NS (PMX) 100 ML IV (23:22)
[2018-09-21] MEDS: INSULIN ASPART [NOVOLOG] 3 ML PEN SC ×2 (01:00→05:00)
[2018-09-21 01:24] LABS: MAGNESIUM 3.9 mg/dl (1.7-2.5)
[2018-09-21] MEDS: ROPIVACAINE 0.2% 100ML BAG EPI (03:14)
[2018-09-21] MEDS: AMPICILLIN 1 GM/NS (PMX) 50 ML IV (03:49)
[2018-09-21] MEDS: MAGNESIUM SULFATE 20 GM/500 ML 500 ML IV ×4 (04:10→23:00)
[2018-09-21] MEDS: MINERAL OIL LIGHT 10 ML VIAL TOP (05:57)
[2018-09-21] MEDS: OXYTOCIN 30 UNITS/LR 500 ML IV ×4 (05:59→20:32)
[2018-09-21] MEDS ORDERED: METHYLERGONOVINE 0.2 MG INJ IM (06:30)
[2018-09-21] MEDS ORDERED: CA GLUCONATE (GM) 10% 10ML INJ IV (06:30)
[2018-09-21] MEDS ORDERED: NACL 0.9% 3 ML SYG IV ×2 (06:30)
[2018-09-21] MEDS ORDERED: CARBOPROST 250 MCG INJ IM (06:30)
[2018-09-21] MEDS ORDERED: OXYTOCIN 30 UNITS/LR 500 ML IV (06:30)
[2018-09-21] MEDS ORDERED: LANOLIN HPA 1 PKT TOP (06:30)
[2018-09-21] MEDS ORDERED: MISOPROSTOL 200 MCG TAB PR (06:30)
[2018-09-21] MEDS ORDERED: HYDROCODONE/APAP (5/325) TAB PO (06:30)
[2018-09-21 06:56] LABS: MAGNESIUM 3.5 mg/dl (1.7-2.5)
[2018-09-21] MEDS: IBUPROFEN 600 MG TAB PO ×3 (11:22→23:31)
[2018-09-21 12:23] LABS: MAGNESIUM 4.3 mg/dl (1.7-2.5)
[2018-09-21 18:30] LABS: MAGNESIUM 5.2 mg/dl (1.7-2.5)
[2018-09-21] MEDS: LACTATED RINGER'S 1,000 ML IV (23:29)
[2018-09-22 02:52] LABS: MAGNESIUM 4.1 mg/dl (1.7-2.5)
[2018-09-22] MEDS: IBUPROFEN 600 MG TAB PO ×3 (05:44→17:41)
[2018-09-22 07:03] LABS: ADD MAN DIFF? NO
[2018-09-22 07:07] LABS: WHITE BLOOD COUNT 8.7 10^3/ul (4.8-10.8)
[2018-09-22 07:07] LABS: BASOPHILS % 0.3 % (0.0-2.0); EOSINOPHILS # 0.1 10^3/ul (0.0-0.5); EOSINOPHILS % 1.6 % (0.0-7.0); HEMATOCRIT 25.7 % (37.0-47.0); HEMOGLOBIN 8.3 g/dl (12.0-16.0); LYMPHOCYTES # 2.1 10^3/ul (0.8-2.9); LYMPHOCYTES % 24.2 % (15.0-51.0); MEAN CORPUSCULAR HEMOGLOBIN 27.5 pg (29.0-33.0); MEAN CORPUSCULAR HGB CONC 32.3 g/dl (32.0-37.0); MEAN CORPUSCULAR VOLUME 85.1 fl (82.0-101.0); MEAN PLATELET VOLUME 10.3 fl (7.4-10.4); MONOCYTE # 0.5 10^3/ul (0.3-0.9); MONOCYTES % 5.7 % (0.0-11.0); NEUTROPHIL # 5.9 10^3/ul (1.6-7.5); NEUTROPHILS % 67.9 % (39.0-77.0); PLATELET COUNT 208 10^3/UL (140-415); RED BLOOD COUNT 3.02 10^6/ul (4.20-5.40); RED CELL DISTRIBUTION WIDTH 13.6 % (11.5-14.5)
[2018-09-23] MEDS: IBUPROFEN 600 MG TAB PO ×3 (00:31→12:00)
[2018-09-23] MEDS: DIPHTH/TET/ACEL PERTUSS (ADULT) 0.5 ML VIAL IM* (09:00)
[2018-09-23 10:29] LABS: ADD MAN DIFF? NO
[2018-09-23 10:31] LABS: BASOPHILS % 0.3 % (0.0-2.0); EOSINOPHILS # 0.1 10^3/ul (0.0-0.5); EOSINOPHILS % 1.3 % (0.0-7.0); HEMATOCRIT 26.7 % (37.0-47.0); HEMOGLOBIN 8.6 g/dl (12.0-16.0); LYMPHOCYTES % 25.5 % (15.0-51.0); MEAN CORPUSCULAR HEMOGLOBIN 27.7 pg (29.0-33.0); MEAN CORPUSCULAR HGB CONC 32.2 g/dl (32.0-37.0); MEAN CORPUSCULAR VOLUME 86.1 fl (82.0-101.0); MEAN PLATELET VOLUME 10.2 fl (7.4-10.4); MONOCYTE # 0.4 10^3/ul (0.3-0.9); MONOCYTES % 5.7 % (0.0-11.0); NEUTROPHIL # 5.2 10^3/ul (1.6-7.5); NEUTROPHILS % 66.7 % (39.0-77.0); PLATELET COUNT 218 10^3/UL (140-415); RED CELL DISTRIBUTION WIDTH 13.8 % (11.5-14.5)
[2018-09-23 10:31] LABS: WHITE BLOOD COUNT 7.7 10^3/ul (4.8-10.8)
== END 2018-09-23 15:05 | disposition home or self-care (01) | DRG 807 ==
LOC: PP1 09-21 08:18 → L-D 05:25
PROC: 10E0XZZ Delivery of Products of Conception, External Approach (ICD-10-PCS; principal; 2018-09-21)
PROC: 3E033VJ Introduction of Other Hormone into Peripheral Vein, Percutaneous Approach (ICD-10-PCS; 2018-09-21)
DX: O24.429 Gestational diabetes mellitus in childbirth, unspecified control (principal); Z37.0 Single live birth; O13.4 Gestational [pregnancy-induced] hypertension without significant proteinuria, complicating childbirth; Z3A.37 37 weeks gestation of pregnancy
CPT/HCPCS: 62322; 76816; 80053; 82962; 83615; 83735; 84560; 85025; 85610; 85730; 86592; 86850; 86900; 86901; 99464